=== PATIENT | male | born 1950 | race Caucasian/White ===

== ENCOUNTER → 2016-10-16 | Outpatient (CLI) | payer OTHER ==
[~2016-10-16] VITALS: Ht 172.7 cm; Wt 93.9 kg
[~2016-10-16] MED LIST: AMLODIPINE BESY10 MG PO; LIPITOR 20 MG T20 M1 PO; MEDROLDOSEPACK PO; NABUMETONE 500500 M1 PO; TELMISARTAN40 MG PO
--- NOTE | ~2016-10-16 | HPC ---
[facility] [place] [address] PAIN MANAGEMENT CONSULTATION Name: DASHAWN LEIGHNE Johanna [facility]: [facility] [id number] Admission: 10/16/16 Attend Phys: Kal Robins DO Discharge: Date of : 54 Report #: [id number] THIS REPORT FOR: //name// CC: Kal Ulloa DATE OF SERVICE: 10/16/2016 DATE OF SERVICE: 10/16/2016 CHIEF COMPLAINT: Axial back pain. HISTORY OF PRESENT ILLNESS: As you know, the patient is a very pleasant 66-year-old male, who has had a longstanding history of axial back pain issues. He states he has had pain on and off for years. He denies injury or trauma to his low back or lower extremities that may have led to symptoms. He indicates days where he has severe pain and days where his pain is not present at all. He typically describes the pain as periodic, describes pain as shooting, sharp and stabbing, places current pain score at 6/10, daily average at 8/10, worst the pain has been is 10/10. The patient states that moving, bending, getting in and out of bed and walking exacerbate symptoms, decrease mobility tends to improve pain. The patient denies radiation of symptoms beyond the low back. There is no radicular component to his symptoms. He has been referred to our service by Dr. Antonio Ulloa for evaluation. PAST MEDICAL HISTORY: 1. Hypertension. 2. Dyslipidemia. PAST SURGICAL HISTORY: Palatectomy. SOCIAL HISTORY: He denies tobacco, IV or illicit drug use. Admits to approximately 6 pack of beer per week. He is working part-time at one of the local [employer]. He is working, not receiving workmen's compensation nor is he trying to obtain disability benefits. He is accompanied by his , who is present in room today. REVIEW OF SYSTEMS: Positive for wearing corrective eyewear, hearing loss with tinnitus, axial back pain, varicose veins, heat and cold intolerance, hypertension and dyslipidemia. All other review of systems negative per 12-point review of systems other than those listed in history of present illness. Pain impact score 44/70 indicating moderate to severe interference of daily activities secondary to pain. [facility] [address] [place] [address] PAIN MANAGEMENT CONSULTATION Name: ASMITA LEIGH Room #: [facility]#: [id number] Admission: 10/16/16 Attend Phys: Kal Robins DO Discharge: Date of : 54 Report #: [id number] ALLERGIES: No known drug allergies. CURRENT MEDICATIONS: Telmisartan 40 mg once a day, atorvastatin 20 mg per day, amlodipine 10 mg per day. IMAGING: No imaging available. PHYSICAL EXAMINATION: VITAL SIGNS: Blood pressure 143/94, pulse 105, respiratory rate 14, unlabored. The patient is 97% on room air. Height 5 feet 8 inches tall, weight 207 pounds, BMI calculated 31.5. GENERAL: Well developed, well nourished, well hydrated, 66-year-old male. He appears his stated age. Pain is rated around 1/10 today. HEENT: Normocephalic, atraumatic. Pupils equal, round, reactive to light. Extraocular muscles are intact. Sclerae nonicteric without injection. NEUROLOGIC: Cranial nerves 2-12 grossly intact. Speech is fluent. The patient deemed an excellent historian. LUNGS: Clear, no wheeze, rhonchi or rales. CARDIOVASCULAR: Regular. No appreciable gallop or rub. ABDOMEN: Soft, nontender, normal active bowel sounds. EXTREMITIES: Show no clubbing, no cyanosis, no edema. MUSCULOSKELETAL: Palpatory tenderness is noted over the paraspinal musculature of the lower lumbar spine. Deep palpation over the L4-L5, L5-S1 facet joints causes intensification of pain. Seated straight leg raising negative. Supine straight leg raising negative. James's test is negative. Modified Gaenslen's positive for axial low back pain, no radiation. Ankle clonus negative. Babinski is negative. Muscle bulk and tone equal and symmetrical. Gait normal, stance slightly forward flexed of the lumbar spine. ASSESSMENT: 1. Myofascial pain. 2. Lumbosacral spondylosis without radicular symptoms. 3. 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 4. Chronic intractable pain. PLAN: 1. The patient by physical exam, history he provides the description of the symptoms and the location of pain is likely suffering from facet arthropathy of the lower lumbar spine. The patient and I discussed treatment options for facet arthropathy. These would include physical therapy, stretching exercises, core strengthening. We discussed medication management with addition of a nonsteroidal anti-inflammatory on a consistent basis. We discussed interventional treatment such as intra-articular facet injections, medial branch nerve blocks, radiofrequency lesioning. We also discussed potential surgical options. After reviewing the risks and benefits of all the proposed treatment [facility] [address] [place] [address] PAIN MANAGEMENT CONSULTATION Name: ASMITA LEIGH Room #: REG CL Valentín#: [id number] Admission: 10/16/16 Attend Phys: Kal Robins DO Discharge: Date of : 54 Report #: [id number] options, the patient chose to begin with conservative treatment starting with medication management and physical therapy. 2. The patient was given stretches and core strengthening exercises today, both in written form and in verbal form. We also provided examples of core strengthening exercises here in the clinic today. The patient will begin this, minimally formalized physical therapy. If he is not noticing improvement with this in formal physical therapy, I would recommend that he begin a formalized therapy program twice a week for 4 weeks. We will begin with this therapy program. If this is ineffective, we will move forward with a more formalized treatment. 3. The patient will be started on Medrol Dosepak. He will take as directed. This will be utilized to reduce the inflammatory process the patient is experiencing, as exacerbating his symptoms are present. Once he has completed the Medrol Dosepak, he should see improvement in symptoms. We will determine how long that improvement is noted and what exacerbating factors may reinitiate the pain if at all. 4. We will start the patient on nabumetone 500 mg dose. This will be added for baseline anti-inflammatory coverage. He was given the 500 mg tablet 1 tab p.o. t.i.d. with meals. I have given the patient #90 tablets, 2 refills. The patient was advised to watch for any dyspepsia, worsening blood pressure, lower extremity edema with its use. If he notes any side effects, discontinue immediately, call for further instructions. 5. We wish to thank you for the opportunity to see the patient in consultation. He is a very delightful 66-year-old male. We will see him back in followup visit on an as needed basis for possible changes in medication therapy, interventional treatments if necessary. Again, we wish to thank you for the opportunity to see the patient in consultation. By: [id number] Kal Robins DO /leonard
[2016-10-16 12:34] VITALS: BP 143/94
== END ==
LOC: PAIN 06:56
DX: M54.89 Other dorsalgia (principal); I10 Essential (primary) hypertension; E78.5 Hyperlipidemia, unspecified; M79.1 Myalgia; M47.817 Spondylosis without myelopathy or radiculopathy, lumbosacral region; G89.29 Other chronic pain